=== PATIENT | male | born 1950 | race Hispanic/Latino ===

== ENCOUNTER 2017-02-09 13:29 | Day surgery (SDC) | payer OTHER, MEDICARE ==
[~2017-02-09] VITALS: Ht 172.7 cm; Wt 66.0 kg
[~2017-02-09 13:29] MED LIST: 0.9% Sodium Chloride 1,000 ML IV SCH; Sodium Chloride LOK Flush 10 mL Syringe IV PRN; fentaNYL-PF 50 mCg/mL 2 mL Inj IVPUSH PRN; no medications
[2017-02-09 14:04] VITALS: BP 140/85; PULSE 54; RESP 16; O2SAT 100
[2017-02-09] MEDS ORDERED: MULT-1074 PO (14:15)
--- NOTE | 2017-02-09 15:41 | PCM.ENDEGD ---
EGD Date of Service: Feb 09, 2017 Physician Matias Corral MD Pre Procedure Diagnosis: HCV Post Procedure Dx & Findings: Gastric ulcer Procedure Esophagogastroduodenoscopy PROCEDURE IN DETAIL: After proper sedation, Olympus video endoscope was inserted into patient's mouth and esophagus was successfully intubated. Scope introduced esophagus. Esophagus showed normal shiny whitish mucosa consistent with squamous cell component. Z line was intact at 40 cm from the incisors. Stomach further events to the stomach. Stomach showed normal shiny mucosa with normal appearing rugae folds without any ulcer mass erosion. However in the body and to some extent in the part of the fundus, a few superficial ulcers up to a centimeter in size. Biopsies are obtained. Cardia fundus body antrum pylorus were all visualized. Retroflexion was done. Stomach was easily inflated and deflatable using air. Scope further events to the distal duodenum. Duodenum revealed normal villous structures with normal appearing folds without any mass ulcer erosion. Impression Superficial gastric ulcers Recommendation PPI Presedation Assessment Risks and Benefits Informed consent was obtained from the patient after all risks and benefits including but not limited to drug reaction, infection, pain, bleeding, perforation, as well as alternatives were discussed. Patient monitoring Continuous pulse oximetry, cardiac monitoring, blood pressure monitoring, IV access, and oxygen at 2L per nasal cannula. Periprocedural Fentanyl: Fentanyl 100mcg Incrementally Midazolam: Midazolam 4mg Incrementally Complications There were no periprocedural complications identified. Post Procedure Plan Post Procedure Recommendations 1. Restrict activities today. 2. Resume normal activities in the morning. 3. Resume medications. 4. GERD behavioral modification: - Avoid fatty, acidic, spicy, large meals - Do not lie down after meals - Do not eat or drink anything for at least 2 1/2 hours before going to bed at night - Discontinue tobacco and alcohol - Decrease or avoid caffeine - Avoid chocolate and mints - Decrease weight - Avoid aspirin and non steroidal anti-inflammatory agents (NSAID) such as Aleve, Advil, Mobic, Naproxen, Ibuprofen, etc 5. Add proton pump inhibitor. Take 30 minutes before 1st meal of the day. 6. Patient informed of normal post procedure side effects as bloating, drowsiness, blood streaking in the stool 7. If gastric biopsy reveal H.pylori, continue with appropriate treatment 8. If small bowel biopsy reveals celiac, continue with appropriate treatment 9. Please don't hesitate to call me with any questions Matias Corral MD Feb 09, 2017 15:41
[2017-02-09 15:51] VITALS: BP 130/76; PULSE 50; O2SAT 96
[2017-02-09 16:01] VITALS: BP 127/73; PULSE 49; RESP 16; O2SAT 97
[2017-02-09 16:11] VITALS: BP 123/72; PULSE 49; RESP 16; O2SAT 98
[2017-02-09 16:22] VITALS: BP 133/73; PULSE 48; RESP 16; O2SAT 99
--- NOTE | 2017-02-11 16:41 | PATH ---
SURGICAL PATHOLOGY Attending Physician:Matias Corral M.D. CASE STATUS: Signed Out PATIENT NAME: ROYCE DICKEY PID: [id number] : 1950 DATE COLLECTED:02/09/2017 00:00 SPECIMEN: Gastric, Biopsy CLINICAL HISTORY: 1). GASTRIC EROSION FINAL DIAGNOSIS: 1.BIOPSY, GASTRIC EROSION: DIFFUSE MODERATE CHRONIC GASTRITIS WITH FOCAL MUCOSAL EROSION INVOLVING FUNDIC MUCOSA. Immunohistochemistry for Helicobacter pending, to be reported by addendum. Negative for intestinal metaplasia. Negative for dysplasia and malignancy. ICD10 K29.70 GROSS DESCRIPTION: Received in formalin, labeled with the patient's name and "gastric erosion" are two fragments of castillo soft tissue ranging from 0.3 x 0.1 x 0.1 cm to 0.4 x 0.2 x 0.1 cm. The fragments are totally submitted in cassette 1A. ([id number]) MICRO DESCRIPTION: See diagnosis. ICD-9 CODES: CPT CODES: 1: 24961, 25281 PROCEDURE/ADDENDA: Addendum SPI Addendum Diagnosis ADDENDUM: IMMUNOHISTOCHEMISTRY RESULTS: 1. Biopsy Gastric Erosion: Positive for Helicobacter pylori by immunohistochemistry. Addendum Comment * This test was developed and its performance characteristics determined by [facility]. It has not been cleared or approved by the U.S. Food and Drug Administration. The FDA has determined that such clearance or approval is not necessary. This test is used for clinical purposes. It should not be regarded as investigational or for research. Electronically Signed Out Silvino Virgen MD Electronically Signed Out Silvino Virgen MD [facility] [address], [place] [address] Technical component performed at [facility], [facility] [address], [place], [address]
== END 2017-02-09 23:59 | disposition home or self-care (01) ==
LOC: END 13:29
PROVIDERS: ATTEND Internal Medicine
DX: K29.50 Unspecified chronic gastritis without bleeding (principal); K25.9 Gastric ulcer, unspecified as acute or chronic, without hemorrhage or perforation; B18.2 Chronic viral hepatitis C; F10.21 Alcohol dependence, in remission; F14.21 Cocaine dependence, in remission; Z87.891 Personal history of nicotine dependence
CPT/HCPCS: 43239; G0500; J2250; J3010; J7030